=== PATIENT | male | born 1995 | race Caucasian/White ===

== ENCOUNTER 2020-10-01 11:55 | Emergency (ER) | payer MEDICAID ==
[~2020-10-01] VITALS: Ht 162.6 cm; Wt 74.8 kg
[2020-10-01 12:05] VITALS: BP_SYST 132
[2020-10-01 12:36] LABS: BLOOD, URINE NEGATIVE (NEGATIVE); COLOR,URINE YELLOW (YELLOW); GLUCOSE,URINE NEGATIVE (NEGATIVE); KETONES,URINE NEGATIVE (NEGATIVE); LEUKOCYTE ESTERASE ,URINE NEGATIVE (NEGATIVE); NITRITE, URINE NEGATIVE (NEGATIVE); PH,URINE 6.5 (5.0-8.0); PROTEIN URINE NEGATIVE (NEGATIVE)
[2020-10-01 12:47] LABS: BASOPHILS % (AUTO) 0.4 % (0.0-2.0); EOSINOPHILS # (AUTO) 0.1 K/uL (0.0-0.4); EOSINOPHILS % (AUTO) 1.2 % (0.0-4.0); HEMATOCRIT 45.5 % (36-54); LYMPHOCYTES # (AUTO) 1.1 K/uL (1.0-5.5); LYMPHOCYTES % (AUTO) 18.1 % (20.5-51.5); MEAN CORPUSCULAR HEMOGLOBIN 28 pg (27-31); MEAN CORPUSCULAR HGB CONC 33 % (32-36); MEAN CORPUSCULAR VOLUME 86 fL (79.0-98.0); MONOCYTES # (AUTO) 0.7 K/uL (0.0-1.0); MONOCYTES % (AUTO) 11.4 % (1.7-9.3); NEUTROPHILS # (AUTO) 4.1 K/uL (1.8-7.7); NEUTROPHILS % (AUTO) 68.9 % (40.0-70.0); PLATELET COUNT (AUTO) 161 K/uL (130-430); RED BLOOD CELL COUNT(AUTO) 5.29 MIL/uL (4.2-6.2); RED CELL DISTRIBUTION WIDTH 12.5 % (9.0-15.0)
[2020-10-01 12:47] LABS: BILIRUBIN,URINE NEGATIVE (NEGATIVE); CLARITY/URINE SLIGHTLY HAZY (CLEAR); UROBILINOGEN,URINE >=8 (0.2-1.0)
[2020-10-01 12:58] LABS: CALCIUM 8.6 mg/dL (8.4-11.0); CREATININE 0.91 mg/dL (0.55-1.30); POTASSIUM 3.9 mmol/L (3.5-5.1)
[2020-10-01 13:00] LABS: C-REACTIVE PROTEIN QUANT 4.8 mg/dL (0-0.5)
[2020-10-01 13:04] LABS: ALBUMIN 4.1 g/dL (3.4-4.8); INR 1.1 (0.80-1.20); PROTHROMBIN TIME 10.9 SECS (9.5-12.5); TOTAL BILIRUBIN 1.5 mg/dL (0.0-1.0)
[2020-10-01] MEDS ORDERED: ONDA-8 TL (13:25)
[2020-10-01] MEDS ORDERED: IBUP-1971 PO (13:25)
[2020-10-01 13:34] VITALS: BP_SYST 132
== END 2020-10-01 13:34 | disposition home or self-care (01) ==
LOC: SED 11:55
DX: R10.33 Periumbilical pain (principal); R10.30 Lower abdominal pain, unspecified; R11.10 Vomiting, unspecified
CPT/HCPCS: 36415; 76376; 80053; 81003; 82150; 83605; 83690; 85025; 85610-TC; 85730-TC; 86140; 99284

== ENCOUNTER → 2021-06-03 | Emergency (ER) | payer MEDICAID ==
[~2021-06-03] MED LIST: IBUP-1971 PO; ONDA-8 TL
== END | disposition home or self-care (01) ==
LOC: SED 21:36
DX: S01.81XD Laceration without foreign body of other part of head, subsequent encounter (principal); Z48.02 Encounter for removal of sutures; Z79.899 Other long term (current) drug therapy; W21.00XD Struck by hit or thrown ball, unspecified type, subsequent encounter
CPT/HCPCS: 99281

== ENCOUNTER 2023-09-01 19:07 | Emergency (ER) | payer MEDICAID, OTHER ==
[~2023-09-01] VITALS: Ht 167.6 cm; Wt 68.0 kg
[2023-09-01 19:17] VITALS: BP_SYST 129; PULSE 69; RESP 16; TEMP 97.6; O2SAT 99
[2023-09-01 19:38] VITALS: BP_SYST 129; PULSE 20; RESP 18; O2SAT 99
[2023-09-01 20:11] LABS: BILIRUBIN,URINE 1+ (NEGATIVE); CLARITY/URINE SL CLOUDY (CLEAR); COLOR,URINE YELLOW (YELLOW); GLUCOSE,URINE NEGATIVE (NEGATIVE); KETONES,URINE NEGATIVE (NEGATIVE); NITRITE, URINE NEGATIVE (NEGATIVE); PROTEIN URINE NEGATIVE (NEGATIVE)
[2023-09-01 20:16] LABS: BLOOD, URINE TRACE (NEGATIVE); LEUKOCYTE ESTERASE ,URINE 2+ (NEGATIVE)
[2023-09-01 20:17] LABS: BACTERIA,URINE FEW /HPF (None Seen); MUCUS,URINE None Seen /LPF (None Seen); RBC,URINE 0-3 /HPF (0-3); WBC,URINE 20-50 /HPF (0-3)
[2023-09-01] MEDS: cefTRIAXone 500 MG in LIDOCAINE 1%, 20 ML MDV 1 ML IM ONE (20:20)
[2023-09-01 20:40] VITALS: TEMP 98.6
[2023-09-01] MEDS ORDERED: DOXY100C PO (20:41)
[2023-09-02 11:03] LABS: NEISSERIA GONORRHOEAE PCR Detected (NOTdetected)
== END 2023-09-01 20:40 | disposition home or self-care (01) ==
LOC: SED 19:07
DX: N39.0 Urinary tract infection, site not specified (principal); R30.0 Dysuria; R10.30 Lower abdominal pain, unspecified; Z79.899 Other long term (current) drug therapy
CPT/HCPCS: 99283; 81001; 87086; 36415; 96372; 87491; 81000; 81015; J0696

== ENCOUNTER 2023-10-26 22:16 | Emergency (ER) | payer OTHER ==
[~2023-10-26] VITALS: Ht 167.6 cm; Wt 63.5 kg
[~2023-10-26 22:16] MED LIST changes: +DOXY100C PO
[2023-10-26 22:24] VITALS: BP_SYST 117; PULSE 91; RESP 16; TEMP 99.2; O2SAT 97
[2023-10-26] MEDS ORDERED: ONDA-8 TL (23:14)
[2023-10-26] MEDS: NACL 0.9% 1,000 ML IV ONE (23:26)
[2023-10-26] MEDS: ONDANSETRON HCL 4 MG/2 ML VIAL IVP ONE (23:27)
[2023-10-27 00:43] LABS: BASOPHILS # (AUTO) 0.1 K/uL (0.0-0.2); BASOPHILS % (AUTO) 0.6 % (0.0-2.0); EOSINOPHILS % (AUTO) 0.2 % (0.0-4.0); HEMATOCRIT 45.6 % (36-54); HEMOGLOBIN 15.5 g/dL (14.0-18.0); LYMPHOCYTES # (AUTO) 0.2 K/uL (1.0-5.5); LYMPHOCYTES % (AUTO) 2.1 % (20.5-51.5); MEAN CORPUSCULAR HEMOGLOBIN 30 pg (27-31); MEAN CORPUSCULAR HGB CONC 34 % (32-36); MEAN CORPUSCULAR VOLUME 87 fL (79.0-98.0); MONOCYTES # (AUTO) 0.2 K/uL (0.0-1.0); MONOCYTES % (AUTO) 2.1 % (1.7-9.3); PLATELET COUNT (AUTO) 144 K/uL (130-430); RED BLOOD CELL COUNT(AUTO) 5.25 MIL/uL (4.2-6.2); RED CELL DISTRIBUTION WIDTH 13.2 % (9.0-15.0); WHITE BLOOD COUNT (AUTO) 10.5 K/uL (4.8-10.8)
[2023-10-27 00:49] LABS: BILIRUBIN,URINE 1+ (NEGATIVE); BLOOD, URINE NEGATIVE (NEGATIVE); CLARITY/URINE CLEAR (CLEAR); GLUCOSE,URINE NEGATIVE (NEGATIVE); KETONES,URINE 2+ (NEGATIVE); LEUKOCYTE ESTERASE ,URINE NEGATIVE (NEGATIVE); NITRITE, URINE NEGATIVE (NEGATIVE); PROTEIN URINE NEGATIVE (NEGATIVE); UROBILINOGEN,URINE 0.2 (0.2-1.0)
[2023-10-27 00:49] LABS: ALBUMIN 4.1 g/dL (3.4-4.8); BILIRUBIN,DIRECT 0.3 mg/dL (0.0-0.3); CALCIUM 8.5 mg/dL (8.4-11.0); CREATININE 0.88 mg/dL (0.55-1.30); POTASSIUM 3.6 mmol/L (3.5-5.1); TOTAL BILIRUBIN 3.1 mg/dL (0.0-1.0); TOTAL PROTEIN, SERUM 7.6 g/dL (6.4-8.3)
[2023-10-27 00:53] LABS: COLOR,URINE YELLOW (YELLOW)
[2023-10-27 01:23] LABS: COVID19 ANTIGEN SOFIA FIA NEGATIVE (NEGATIVE)
[2023-10-27 01:47] LABS: INFLUENZA TYPE B NEGATIVE (NEGATIVE)
[2023-10-27 01:50] VITALS: BP_SYST 103; PULSE 80; RESP 15; TEMP 98.7; O2SAT 96
[2023-10-27 01:54] LABS: INFLUENZA TYPE A POSITIVE (NEGATIVE)
== END 2023-10-27 01:45 | disposition home or self-care (01) ==
LOC: SED 22:16
DX: K29.70 Gastritis, unspecified, without bleeding (principal); F12.10 Cannabis abuse, uncomplicated; E80.6 Other disorders of bilirubin metabolism; Z20.822 Contact with and (suspected) exposure to COVID-19
CPT/HCPCS: 99283; 96374; 96361; 87426; 80076; 80048; 81001; 83690; 85025; 36415; 87804 ×2; J2405; J7030; 81003

== ENCOUNTER 2023-11-21 21:18 | Emergency (ER) | payer OTHER ==
[~2023-11-21] VITALS: Ht 167.6 cm; Wt 63.5 kg
[2023-11-21 21:35] VITALS: BP_SYST 117; PULSE 77; RESP 18; TEMP 98.5; O2SAT 99
[2023-11-21] MEDS ORDERED: IBUP-1969 PO (23:13)
[2023-11-21] MEDS ORDERED: ACET-2634 PO (23:13)
[2023-11-21] MEDS ORDERED: CYCL10TA24 PO (23:13)
[2023-11-21] MEDS: IBUPROFEN 600 MG TABLET PO ONE (23:21)
[2023-11-21] MEDS: ACETAMINOPHEN 500 MG TABLET PO ONE (23:22)
== END 2023-11-21 21:39 | disposition home or self-care (01) ==
LOC: SED 21:18
DX: S16.1XXA Strain of muscle, fascia and tendon at neck level, initial encounter (principal); Z79.899 Other long term (current) drug therapy; Z79.2 Long term (current) use of antibiotics; V89.2XXA Person injured in unspecified motor-vehicle accident, traffic, initial encounter; Y93.89 Activity, other specified; Y92.89 Other specified places as the place of occurrence of the external cause; Y99.8 Other external cause status
CPT/HCPCS: 99283

== ENCOUNTER 2024-01-06 20:44 | Emergency (ER) | payer OTHER ==
[~2024-01-06] VITALS: Ht 167.6 cm; Wt 59.0 kg
[~2024-01-06 20:44] MED LIST changes: +ACET-2634 PO; +CYCL10TA24 PO; +IBUP-1969 PO
[2024-01-06 21:25] VITALS: BP_SYST 112; PULSE 111; RESP 19; TEMP 97.8; O2SAT 96
[2024-01-06 21:30] VITALS: BP_SYST 115; PULSE 71; RESP 17; TEMP 98.2; O2SAT 97
[2024-01-06] MEDS ORDERED: AUG875 PO (23:51)
[2024-01-06] MEDS ORDERED: BENZ150C10 PO (23:51)
[2024-01-06 23:56] VITALS: BP_SYST 112; PULSE 62; RESP 16; TEMP 97.8; O2SAT 98
== END 2024-01-06 23:56 | disposition home or self-care (01) ==
LOC: SED 20:44
DX: J20.9 Acute bronchitis, unspecified (principal); R05.9 Cough, unspecified; Z79.899 Other long term (current) drug therapy; Z79.2 Long term (current) use of antibiotics
CPT/HCPCS: 99283